=== PATIENT | female | born 1985 | race Asian ===

== ENCOUNTER → 2016-12-11 | Day surgery (SDC) | payer BC ==
[~2016-12-11] VITALS: Ht 154.9 cm; Wt 46.7 kg
[~2016-12-11] MED LIST: DiphenhydrAMINE 50mg/ml Inj IVP PRN; LR 1000ml 1,000 ML IVLG SCH; LR 1000ml ONE; Labetalol 5mg/ml 20ml vial IV PRN; Lidocaine 1% MPF 10mg/ml 5ml ONE; NKM; Propofol 10mg/ml 20ml IV ONE
--- NOTE | 2016-12-11 07:48 | Anethesia Preoperative Eval ---
Anesthesia Pre-op PMH/ROS General Date of Evaluation: Dec 11, 2016 Anesthesiologist: Fortino ASA Score: ASA 2 Mallampati Score Class I : Soft palate, uvula, fauces, pillars visible Class II: Soft palate, uvula, fauces visible Class III: Soft palate, base of uvula visible Class IV: Only hard plate visible Mallampati Classification: Class II Surgeon: Sera Diagnosis: GERD Surgical Procedure: EGD Anesthesia History: none Family History: no anesthesia problems Allergies: Coded Allergies: No Known Allergies (Unverified , 12/11/16) Medications: see eMAR Past Medical History Cardiovascular: Denies: CAD, HTN, TN, arrhythmia, other, valve dz Pulmonary: Reports: asthma, Denies: COPD, DAYNA, other Gastrointestinal/Genitourinary: Denies: CRI, ESRD, GERD, other Neurologic/Psychiatric: Denies: CVA, TIA, dementia, depression/anxiety, other Endocrine: Denies: DM, hypothyroidism, other, steroids HEENT: Denies: [place] (L), [place] (R), cataract (L), cataract (R), glaucoma, other Hematology/Immune: Denies: DVT, anemia, bleeding disorder, other Musculoskeletal/Integumentary: Denies: DDD, DJD, OA, RA, edema, other PSxH Narrative: c/s Anesthesia Pre-op Phys. Exam Physician Exam see chart Constitutional: NAD Cardiovascular: RRR Respiratory: CTA Airway Exam Mallampati Score: Class II MO: full ROM: full Anesthesia Pre-op A/P Labs see chart Risk Assessment & Plan Assessment: ASA II Plan: MAC Status Change Before Surgery: No Pre-Antibiotics Drug: N/A MIRIAN NORWOOD M.D. Dec 11, 2016 07:48
--- NOTE | 2016-12-11 08:42 | Pre-Procedure Note/Attestation ---
Pre-Procedure Note/Attestation Complete Prior to Procedure Planned Procedure: not applicable Procedure Narrative: egd Indications for Procedure Pre-Operative Diagnosis: grd Attestation I attest that I discussed the nature of the procedure; its benefits; risks and complications; and alternatives (and the risks and benefits of such alternatives ), prior to the procedure, with the patient (or the patient's legal outside sales representative). I attest that, if there was a reasonable possibility of needing a blood transfusion, the patient (or the patient's legal outside sales representative) was given the [facility] standardized written summary, pursuant to the Alberto Cynthia Blood Safety Act ([place] Health and Safety Code # 1645, as amended). I attest that I re-evaluated the patient just prior to the surgery and that there has been no change in the patient's H&P, except as documented below: LUCINDA BUTCHER Dec 11, 2016 08:42
[2016-12-11 08:47] VITALS: BP 111/64
--- NOTE | 2016-12-11 08:52 | Short Stay Surgery H&P ---
History of Present Illness History of Present Illness Chief Complaint gerd HPI Kuldip Doyle is a 31 year old female who was admitted on for Ulcers Patient History Allergies: Coded Allergies: No Known Allergies (Unverified , 12/11/16) PAST MEDICAL HISTORY: (1) Asthma Past Surgeries: Social History: Medication History Scheduled No Known Medications* (NKM - No Known Medications*), 0 ., (Reported) Review of Systems Cardiovascular: Reports: no symptoms Respiratory: Reports: no symptoms Skeletal: Reports: no symptoms Gastrointestinal: Reports: gastro esophageal reflux disease, no symptoms Genitourinary: Reports: no symptoms Neurologic: Reports: no symptoms Endocrine: Reports: no symptoms Hematologic: Reports: no symptoms Physical Exam Vital Signs Last Vital Signs Date Time Temp Pulse Resp B/P Pulse Ox O2 Delivery O2 Flow Rate FiO2 12/11/16 08:47 97.9 81 20 111/64 100 Room Air Labs Laboratory Tests Test 12/11/16 08:20 Urine HCG, Qualitative Negative Skin: normal HENT: normal Heart: normal Lungs: normal Abdomen: normal Extremities: normal Plan Plan of Care egd Final Diagnosis: Attestation Are the patient's medical conditions optimized for surgery? Attestation Response: yes LUCINAD BUTCHER Dec 11, 2016 08:52
--- NOTE | 2016-12-11 08:54 | Immediate Post-Op Evaluation ---
Immediate Post-Op Evalulation Immediate Post-Op Evalulation Procedure: EGD Date of Evaluation: Dec 11, 2016 Time of Evaluation: 09:23 IV Fluids: 300 Blood Products: 0 Estimated Blood Loss: 0 Urinary Output: 0 Blood Pressure Systolic: 104 Blood Pressure Diastolic: 72 Pulse Rate: 72 Respiratory Rate: 16 O2 Sat by Pulse Oximetry: 98 Temperature (Fahrenheit): 97 Pain Score (1-10): 0 Nausea: No Vomiting: No Complications 0 Patient Status: awake, reacts, patent, none Hydration Status: adequate Drug: N/A MIRIAN NORWOOD M.D. Dec 11, 2016 08:54
--- NOTE | 2016-12-11 08:55 | 48 Hour Post Anesthesia Eval ---
Post Anesthesia Evaluation Procedure: EGD Date of Evaluation: Dec 11, 2016 Blood Pressure Systolic: 109 0: 81 Pulse Rate: 75 Respiratory Rate: 16 O2 Sat by Pulse Oximetry: 99 Airway: patent Nausea: No Vomiting: No Pain Intensity: 0 Hydration Status: adequate Cardiopulmonary Status: at [place] Mental Status/LOC: patient returned to baseline Post-Anesthesia Complications: 0 Follow-up care needed: ready to discharge MIRIAN NORWOOD M.D. Dec 11, 2016 08:55
--- NOTE | 2016-12-11 09:12 | Endoscopy Procedure Note ---
Endoscopy Procedure Note Indication for Procedure: Procedures Performed: EGD Operative Findings/Diagnosis: gastritis Specimen: yes Pt Tolerated Procedure Well: Yes Estimated Blood Loss: none Anesthesiologist: zunilda Anesthesia: MAC Implant(s) used?: No 50 yrs or older w/o bx or poly: Not Applicable 10yrs. F/U not recommended: Not Applicable LUCINDA BUTCHER Dec 11, 2016 09:12
[2016-12-11 09:18] VITALS: BP 104/72
[2016-12-11 09:23] VITALS: BP 102/72
[2016-12-11 09:28] VITALS: BP 104/74
[2016-12-11 09:40] VITALS: BP 109/77
[2016-12-11 09:45] VITALS: BP 110/80
--- NOTE | 2016-12-11 19:58 | Procedure Note ---
DATE OF PROCEDURE: 12/11/2016 SURGEON: Luciano Zamora M.D. ANESTHESIOLOGIST: Dr. Diane Freitas. PROCEDURE: Endoscopy with biopsy. INSTRUMENT: Olympus adult flexible endoscope. INDICATION: History of gastric ulcers and abdominal pain. REASON FOR PROCEDURE: The procedure, risks, benefits, and possible consequences, including hemorrhage, aspiration, perforation and infection, and alternative treatments, were explained to the patient/legal guardian by Dr. Luciano Zamora and the patient/legal guardian understood and accepted these risks. DESCRIPTION OF PROCEDURE: After informed consent was obtained and the patient was adequately sedated, Olympus upper endoscope was advanced from mouth into the second portion of the duodenum and retroflexion was performed stomach. The patient is on evidence some healing ulcer in the pre-pyloric region. Almost gone there is evidence erosion left from the prior ulceration in the pre-pyloric region. The. No active bleeding at this time. Biopsy from the antrum and body was obtained to further evaluation for H. pylori. The patient tolerated procedure very complication. SUMMARY FINDINGS: Findings are going to also history while in the antrum of the stomach most probably, compare almost healing is only left erosion and had left from that ulcer no active bleeding at this time. RECOMMENDATIONS: Follow up biopsies and treat accordingly. Luciano Zamora M.D. DR: SUJATA JOB#: [id number] CC: PAULINO
== END | disposition home or self-care (01) ==
LOC: GAS 08:03
DX: K25.9 Gastric ulcer, unspecified as acute or chronic, without hemorrhage or perforation (principal); K29.50 Unspecified chronic gastritis without bleeding; B96.81 Helicobacter pylori [H. pylori] as the cause of diseases classified elsewhere; K21.9 Gastro-esophageal reflux disease without esophagitis; J45.909 Unspecified asthma, uncomplicated; Z87.11 Personal history of peptic ulcer disease
CPT/HCPCS: 43239; 81025; J2704; J7120; 94003; 94150